=== PATIENT | female | born 1985 | race Caucasian/White ===

== ENCOUNTER 2017-08-30 15:03 | Emergency (ER) | payer OTHER ==
[2017-08-30 15:26] VITALS: BP 122/68
--- NOTE | 2017-08-30 16:09 | ER Document Report ---
ED General - General Chief Complaint: Psych Problem Stated Complaint: BEHAVIOR ISSUE Time Seen by Provider: 08/30/17 16:04 Mode of Arrival: Ambulatory Information source: Patient Notes: Patient presents stating that she is currently out of her medications. She states that she recently moved here from [place] and does not yet have a provider or her medications. She states she does have insurance and can get her medications filled. She did speak today with Dr. Romo who is arrange for patient to follow-up as an outpatient. Patient states that she is okay with this plan. Patient denies any current suicidal or homicidal ideations. She denies any auditory or visual hallucinations. Symptoms today were mild. They are intermittent. They are better after talking with Dr. Romo and worse when stress was involved. There is no known radiation of symptoms. TRAVEL OUTSIDE OF THE [place] IN LAST 30 DAYS: No - Related Data Allergies/Adverse Reactions: diphenhydramine [From Benadryl] Allergy (Verified 08/30/17 15:07) Facial swelling Past Medical History - General Information source: Patient - Social History Smoking Status: Unknown if Ever Smoked Frequency of alcohol use: Occasional Drug Abuse: None Lives with: Spouse/Significant other Family History: Reviewed & Not Pertinent Review of Systems - Review of Systems Constitutional: denies: Chills, Fever Cardiovascular: denies: Chest pain, Palpitations Respiratory: denies: Cough, Short of breath Physical Exam - Vital signs Vitals: Temp Pulse Resp BP Pulse Ox 98.7 F 93 18 122/68 97 08/30/17 15:25 08/30/17 15:25 08/30/17 15:25 08/30/17 15:25 08/30/17 15:25 Interpretation: Normal - General General appearance: Appears well, Alert - HEENT Head: Normocephalic, Atraumatic Eyes: Normal Pupils: PERRL - Respiratory Respiratory status: No respiratory distress Chest status: Nontender Breath sounds: Normal Chest palpation: Normal - Cardiovascular Rhythm: Regular Heart sounds: Normal auscultation Murmur: No - Abdominal Inspection: Normal Distension: No distension Bowel sounds: Normal Tenderness: Nontender Organomegaly: No organomegaly - Back Back: Normal, Nontender - Extremities General upper extremity: Normal inspection, Nontender, Normal color, Normal ROM , Normal temperature General lower extremity: Normal inspection, Nontender, Normal color, Normal ROM , Normal temperature, Normal weight bearing. No: Sindy's sign - Neurological Neuro grossly intact: Yes Cognition: Normal Orientation: AAOx4 Cecilio Coma Scale Eye Opening: Spontaneous Cecilio Coma Scale Verbal: Oriented Cecilio Coma Scale Motor: Obeys Commands Redmond Coma Scale Total: 15 Speech: Normal Motor strength normal: LUE, RUE, LLE, RLE Sensory: Normal - Psychological Associated symptoms: Normal affect, Normal mood - Skin Skin Temperature: Warm Skin Moisture: Dry Skin Color: Normal Course - Vital Signs Vital signs: Temp Pulse Resp BP Pulse Ox 98.7 F 93 18 122/68 97 08/30/17 15:25 08/30/17 15:25 08/30/17 15:25 08/30/17 15:25 08/30/17 15:25 Discharge - Discharge Clinical Impression: Depression (emotion) Qualifiers: Depression Type: unspecified Qualified Code(s): F32.9 - Major depressive disorder, single episode, unspecified Condition: Stable Disposition: HOME, SELF-CARE Instructions: Depression ([facility]) Additional Instructions: Please follow-up as instructed by Dr. Romo. Your blood pressure is mildly elevated. Please have this rechecked within 1 week by your physician. Prescriptions: Prazosin HCl 1 mg PO QHS 30 Days #30 capsule Fluoxetine HCl [Prozac 20 mg Capsule] 20 mg PO DAILY #30 capsule Olanzapine [Zyprexa 2.5 Mg Tablet] 2.5 mg PO BID 30 Days #60 tablet Forms: Elevated Blood Pressure Referrals: WOLFGANG REA MD [COMMUNITY BASED STAFF] - Follow up in 1 week
== END 2017-08-30 16:15 | disposition home or self-care (01) ==
LOC: ER 15:03
DX: F32.9 Major depressive disorder, single episode, unspecified (principal); Z91.14 Patient's other noncompliance with medication regimen; Z88.8 Allergy status to other drugs, medicaments and biological substances
CPT/HCPCS: 99281